=== PATIENT | female | born 1980 | race Caucasian/White ===

== ENCOUNTER 2016-09-06 19:28 | Emergency (ER) | payer OTHER ==
[2016-09-06 19:33] VITALS: BP 135/76; PULSE 85; RESP 18; TEMP 98.1
[2016-09-06] MEDS ORDERED: DIAZEPAM 5 MG/ML 2 ML SYRINGE IM ONE (19:47)
[2016-09-06] MEDS ORDERED: KETOROLAC 30 MG/ML 1 ML VIAL IM STA (19:47)
--- NOTE | 2016-09-06 19:57 | ED ---
General Adult HPI - General Chief complaint: Anxiety Stated complaint: Withdrawals-Heroin Time Seen by Provider: 09/06/16 19:37 Source: patient, family, RN notes reviewed Mode of arrival: ambulatory Limitations: no limitations - History of Present Illness Initial comments: 36 YO female with no significant past medical history presents with generalized pain and anxiety. Patient is attempting to quit heroin. Her last full dose of heroin was yesterday at approximately 12 PM. She states she did use a small amount of heroin at 11 AM today patient denies IV heroin use states she smokes a. She moved from [place] today to be with her family who is present in the emergency department. She is accompanied by her brother. She does report a few episodes of diarrhea. She is complaining of generalized pain. There is no trauma. There is no one part of her body that hurts more than another. She has an appointment with a primary care physician tomorrow morning - Related Data Previous Rx's Medication Instructions Recorded Diazepam [Valium] 2 mg PO TID PRN #12 tab 09/06/16 Ibuprofen [Motrin] 600 mg PO Q8HR PRN #24 tab 09/06/16 Allergies Allergy/AdvReac Type Severity Reaction Status Date / Time No Known Allergies Allergy Verified 09/06/16 19:33 Review of Systems ROS Statement: Those systems with pertinent positive or pertinent negative responses have been documented in the HPI. ROS Other: All systems not noted in ROS Statement are negative. Past Medical History Additional Past Medical History / Comment(s): heroin abuse History of Any Multi-Drug Resistant Organisms: None Reported Additional Past Surgical History / Comment(s): D&C Past Psychological History: Depression Smoking Status: Current every day smoker Past Alcohol Use History: Occasional Past Drug Use History: Cocaine, Heroin, Marijuana, Methamphetamine, Prescription Drug Abuse General Exam Limitations: no limitations General appearance: alert, anxious, in distress Head exam: Present: atraumatic, normocephalic Eye exam: Present: normal appearance, PERRL ENT exam: Present: normal exam, mucous membranes moist Neck exam: Present: normal inspection, full ROM Respiratory exam: Present: normal lung sounds bilaterally. Absent: respiratory distress Cardiovascular Exam: Present: regular rate, normal rhythm GI/Abdominal exam: Present: soft. Absent: distended, tenderness Neurological exam: Present: alert, oriented X3 Psychiatric exam: Present: anxious Skin exam: Present: warm, dry. Absent: diaphoretic Course Vital Signs 09/06/16 19:30 Temperature 98.1 F Pulse Rate 85 Respiratory 18 Rate Blood Pressure 135/76 O2 Sat by Pulse 97 Oximetry Medical Decision Making - Medical Decision Making 3HO female presenting with opiate withdrawal. Patient's last normal dose of heroin was approximately 30 hours prior to arrival. She is complaining of some mild diarrhea. She does not appear clinically dehydrated on examination. She is also complaining of generalized pain. She is given Toradol and Valium in the emergency department. Patient has an appointment with a primary care physician tomorrow morning. She will maintain that appointment. She is accompanied by her brother who she is staying with. She came to [place] for the purpose of quitting heroin. Disposition Clinical Impression: Heroin withdrawal Disposition: HOME SELF-CARE Condition: Good Instructions: Opioid Withdrawal (ED) Prescriptions: Diazepam [Valium] 2 mg PO TID PRN #12 tab PRN Reason: Pain Ibuprofen [Motrin] 600 mg PO Q8HR PRN #24 tab PRN Reason: Pain Referrals: None,Stated [Primary Care Provider] - 1-2 days Time of Disposition: 19:51
== END 2016-09-06 20:15 | disposition home or self-care (01) ==
LOC: EC 19:28
DX: F11.23 Opioid dependence with withdrawal (principal); R19.7 Diarrhea, unspecified; R52 Pain, unspecified; F17.200 Nicotine dependence, unspecified, uncomplicated
CPT/HCPCS: 99283; 96372 ×2; J3360; J1885

== ENCOUNTER 2018-01-11 11:45 | Emergency (ER) | payer OTHER ==
[2018-01-11 12:02] VITALS: TEMP 98.1
[2018-01-11 12:33] LABS: Basophils % (A) 0 %; Eosinophils # (A) 0.1 k/uL (0-0.7); Eosinophils % (A) 2 %; HCT 41.4 % (34.0-46.0); HGB 14.5 gm/dL (11.4-16.0); Lymphocytes # (A) 1.7 k/uL (1.0-4.8); Lymphocytes % (A) 23 %; MCH 31.3 pg (25.0-35.0); MCHC 35.1 g/dL (31.0-37.0); MCV 89.3 fL (80.0-100.0); Mean Platelet Volume 8.5; Monocytes # (A) 0.3 k/uL (0-1.0); Monocytes % (A) 4 %; Neutrophils # (A) 5.2 k/uL (1.3-7.7); Neutrophils % (A) 70 %; Platelet Count 167 k/uL (150-450); RBC 4.63 m/uL (3.80-5.40); RDW 12.4 % (11.5-15.5); WBC 7.4 k/uL (3.8-10.6)
[2018-01-11 12:44] LABS: Anion Gap 6 mmol/L; Blood Urea Nitrogen 11 mg/dL (7-17); Calcium 9.2 mg/dL (8.4-10.2); Carbon Dioxide 22 mmol/L (22-30); Chloride 110 mmol/L (98-107); Glucose 92 mg/dL (74-99); Potassium 4.5 mmol/L (3.5-5.1); Sodium 138 mmol/L (137-145)
--- NOTE | 2018-01-11 12:55 | ED ---
Abdominal Pain HPI - General Chief Complaint: Abdominal Pain Stated Complaint: poss miscarriage Time Seen by Provider: 01/11/18 12:05 Source: patient, RN notes reviewed Mode of arrival: ambulatory Limitations: no limitations - History of Present Illness Initial Comments: 37-year-old female presents emergency Department chief complaint abdominal pain , vaginal bleeding. Patient states she recently found out she is she has not follow-up with [facility] at this time. Patient is A1 with prior molar . Patient states she had a D&C at that time. She states she is passing clots no notable tissue. Denies any chest pain, shortness breath, lightheaded, nausea vomiting. She does have mild left lower quadrant abdominal pain and cramping. - Related Data Home Medications Medication Instructions Recorded Confirmed Acetaminophen Tab [Tylenol] 1,000 mg PO Q8HR 01/11/18 01/11/18 Amoxicillin 500 mg PO TID 01/11/18 01/11/18 Buprenorphine HCl/Naloxone HCl 0.25 film PO DAILY 01/11/18 01/11/18 [Suboxone 8 mg-2 mg Sl Film] Ibuprofen 800 mg PO Q8HR 01/11/18 01/11/18 Allergies Allergy/AdvReac Type Severity Reaction Status Date / Time clove Allergy Anaphylaxis Verified 01/11/18 14:03 Review of Systems ROS Statement: Those systems with pertinent positive or pertinent negative responses have been documented in the HPI. ROS Other: All systems not noted in ROS Statement are negative. Past Medical History Additional Past Medical History / Comment(s): heroin abuse History of Any Multi-Drug Resistant Organisms: None Reported Additional Past Surgical History / Comment(s): D&C Past Psychological History: Depression Smoking Status: Current every day smoker Past Alcohol Use History: Occasional Past Drug Use History: Cocaine, Heroin, Marijuana, Methamphetamine, Prescription Drug Abuse General Exam Limitations: no limitations General appearance: alert, in no apparent distress Head exam: Present: atraumatic, normocephalic, normal inspection Neck exam: Present: normal inspection. Absent: tenderness, meningismus, lymphadenopathy Respiratory exam: Present: normal lung sounds bilaterally. Absent: respiratory distress, wheezes, rales, rhonchi, stridor Cardiovascular Exam: Present: regular rate, normal rhythm, normal heart sounds. Absent: systolic murmur, diastolic murmur, rubs, gallop, clicks GI/Abdominal exam: Present: soft, tenderness (Moderate left lower quadrant tenderness), normal bowel sounds. Absent: distended, guarding, rebound, rigid Back exam: Absent: CVA tenderness (R), CVA tenderness (L) Skin exam: Present: warm, dry, intact, normal color. Absent: rash Course Vital Signs 01/11/18 11:59 Temperature 98.1 F Pulse Rate 88 Respiratory 20 Rate Blood Pressure 110/76 O2 Sat by Pulse 99 Oximetry Medical Decision Making - Medical Decision Making 37-year-old female presented emergency from for vaginal bleeding early . Patient had ultrasound and lab work. Patient ultrasound consistent with miscarriage. Patient will have repeat hCG and repeat ultrasound given history of molar . - Lab Data Result diagrams: 01/11/18 12:16 01/11/18 12:16 Lab Results 01/11/18 01/11/18 01/11/18 Range/Units 12:16 12:16 12:16 WBC 7.4 (3.8-10.6) k/uL RBC 4.63 (3.80-5.40) m/uL Hgb 14.5 (11.4-16.0) gm/dL Hct 41.4 (34.0-46.0) % MCV 89.3 (80.0-100.0) fL MCH 31.3 (25.0-35.0) pg MCHC 35.1 (31.0-37.0) g/dL RDW 12.4 (11.5-15.5) % Plt Count 167 (150-450) k/uL Neutrophils % 70 % Lymphocytes % 23 % Monocytes % 4 % Eosinophils % 2 % Basophils % 0 % Neutrophils # 5.2 (1.3-7.7) k/uL Lymphocytes # 1.7 (1.0-4.8) k/uL Monocytes # 0.3 (0-1.0) k/uL Eosinophils # 0.1 (0-0.7) k/uL Basophils # 0.0 (0-0.2) k/uL Sodium 138 (137-145) mmol/L Potassium 4.5 (3.5-5.1) mmol/L Chloride 110 H (98-107) mmol/L Carbon Dioxide 22 (22-30) mmol/L Anion Gap 6 mmol/L BUN 11 (7-17) mg/dL Creatinine 0.59 (0.52-1.04) mg/dL Est GFR (CKD-EPI)AfAm >90 (>60 ml/min/1.73 sqM) Est GFR (CKD-EPI)NonAf >90 (>60 ml/min/1.73 sqM) Glucose 92 (74-99) mg/dL Calcium 9.2 (8.4-10.2) mg/dL HCG, Quant mIU/mL Urine Color Urine Appearance (Clear) Urine pH (5.0-8.0) Ur Specific [place]ph[place] (1.001-1.035) Urine Protein (Negative) Urine Glucose (UA) (Negative) Urine Ketones (Negative) Urine Blood (Negative) Urine Nitrite (Negative) Urine Bilirubin (Negative) Urine Urobilinogen (<2.0) mg/dL Ur Leukocyte Esterase (Negative) Urine RBC (0-5) /hpf Urine WBC (0-5) /hpf Ur Squamous Epith Cells (0-4) /hpf Urine Mucus (None) /hpf Blood Type O Positive Blood Type Recheck No Previous Record 01/11/18 01/11/18 Range/Units 12:16 12:53 WBC (3.8-10.6) k/uL RBC (3.80-5.40) m/uL Hgb (11.4-16.0) gm/dL Hct (34.0-46.0) % MCV (80.0-100.0) fL MCH (25.0-35.0) pg MCHC (31.0-37.0) g/dL RDW (11.5-15.5) % Plt Count (150-450) k/uL Neutrophils % % Lymphocytes % % Monocytes % % Eosinophils % % Basophils % % Neutrophils # (1.3-7.7) k/uL Lymphocytes # (1.0-4.8) k/uL Monocytes # (0-1.0) k/uL Eosinophils # (0-0.7) k/uL Basophils # (0-0.2) k/uL Sodium (137-145) mmol/L Potassium (3.5-5.1) mmol/L Chloride (98-107) mmol/L Carbon Dioxide (22-30) mmol/L Anion Gap mmol/L BUN (7-17) mg/dL Creatinine (0.52-1.04) mg/dL Est GFR (CKD-EPI)AfAm (>60 ml/min/1.73 sqM) Est GFR (CKD-EPI)NonAf (>60 ml/min/1.73 sqM) Glucose (74-99) mg/dL Calcium (8.4-10.2) mg/dL HCG, Quant 1346.2 mIU/mL Urine Color Red Urine Appearance Turbid H (Clear) Urine pH 6.5 (5.0-8.0) Ur Specific [place] 1.025 (1.001-1.035) Urine Protein 2+ H (Negative) Urine Glucose (UA) Negative (Negative) Urine Ketones Trace H (Negative) Urine Blood Moderate H (Negative) Urine Nitrite Negative (Negative) Urine Bilirubin Negative (Negative) Urine Urobilinogen 2.0 (<2.0) mg/dL Ur Leukocyte Esterase Moderate H (Negative) Urine RBC >182 H (0-5) /hpf Urine WBC 60 H (0-5) /hpf Ur Squamous Epith Cells 2 (0-4) /hpf Urine Mucus Many H (None) /hpf Blood Type Blood Type Recheck Disposition Clinical Impression: Miscarriage Disposition: HOME SELF-CARE Condition: Stable Instructions: Miscarriage (ED) Additional Instructions: Have repeat lab work and ultrasound.Please return to the Emergency Department if symptoms worsen or any other concerns. Is patient prescribed a controlled substance at d/c from ED?: No Referrals: Silvia Sauer MD [Primary Care Provider] - 1-2 days Time of Disposition: 15:06
[2018-01-11 13:33] LABS: Appearance,Urine Turbid (Clear); Bilirubin,Urine Negative (Negative); Blood,Urine Moderate (Negative); Color,Urine Red; Glucose,Urine (UA) Negative (Negative); Ketones,Urine Trace (Negative); Leukocyte Esterase,Urine Moderate (Negative); Mucus,Urine Many /hpf; Nitrite,Urine Negative (Negative); PH, Urine 6.5 (5.0-8.0); Protein,Urine 2+ (Negative); RBC,Urine >182 /hpf (0-5); Specific Gravity,Urine 1.025 (1.001-1.035); Squamous Epithelial Cell,Urine 2 /hpf (0-4); WBC,Urine 60 /hpf (0-5)
--- NOTE | 2018-01-11 14:36 | US ---
EXAMINATION TYPE: Transabdominal DATE OF EXAM: 05/22/17 COMPARISON: NONE CLINICAL HISTORY: Pain. Left pelvic pain and heavy vaginal bleeding/ clots today in ; prior molar ; prior twin gestation/delivery, and another single gestation and delivery EXAM PERFORMED: Transvaginal (TV) and Transabdominal (TA) EXAM MEASUREMENTS: GESTATIONAL AGE / DATING Physician Established: Not yet established Dates by LMP: (9 weeks/ 2 days) EDC: 08/14/2018 Dates by First Scan: No previous. this is first scan Current Scan for: NO IUP seen today MATERNAL ANATOMY Uterus: 10.2 x 6.1 x 5.0cm; Endometrium: multiple small cysts seen within thickened endometrium with largest right lateral upper endometrial cyst = 0.6 x 0.8 x 0.5cm (no decidual reaction is noted with this cyst) Nabothian cysts seen in cervix with largest = 1.1 x 1.0 x 0.6cm. Right Ovary: 1.5 x 2.4 x 1.8cm;; simple follicle seen = 1.1 x 1.0 x 0.4cm Left Ovary: 3.1 x 1.3 x 1.8cm Post CDS / Adnexa: couple of parapelvic cysts seen on image # [id number] in left CDS near cervix and anoth er seen exophytic to left ovary = 1.9 x 1.1cm on image #[id number] Presence of free fluid: no Presence of corpus luteal cyst: in left ovary as hypoechoic thick walled cyst = 1.1 x 1.0 x 1.0cm Presence of subchorionic bleed: no GESTATION / SURVEY IUP: No IUP seen at this time. Multicystic endometrium is also noted. No ectopic is seen a t this time. Date of LMP: 11/07/2017 Beta HcG (if available): 1346.2 IMPRESSION: Endometrium is heterogenous, thickened and ill-defined without current evidence of intrauterine pregn malissa. Given the endometrial heterogeneity and vaginal bleeding spontaneous is suspected, how ever beta hCG is currently below the value and intrauterine would be identified. Therefore both ectopic and early intrauterine are considerations. Short-term follow-up is p elvic ultrasound and serial serum beta hCGs are recommended, especially given this patient's history of molar .
[2018-01-11 15:15] VITALS: BP 121/77; PULSE 76; RESP 16
== END 2018-01-11 15:16 | disposition home or self-care (01) ==
LOC: EC 11:45
DX: O03.9 Complete or unspecified spontaneous abortion without complication (principal); O99.331 Smoking (tobacco) complicating pregnancy, first trimester; F17.200 Nicotine dependence, unspecified, uncomplicated; Z3A.08 8 weeks gestation of pregnancy; Z79.1 Long term (current) use of non-steroidal anti-inflammatories (NSAID); Z79.899 Other long term (current) drug therapy; Z91.018 Allergy to other foods
CPT/HCPCS: 36415; 76801; 76817; 80048; 81001; 84702; 85025; 86900; 86901; 99284